=== PATIENT | female | born 1975 | race African-American/Black ===

== ENCOUNTER 2016-12-12 11:44 | Emergency (ER) | payer OTHER ==
[~2016-12-12] VITALS: Ht 149.9 cm; Wt 43.2 kg
[~2016-12-12 11:44] MED LIST: BCP PO; MULT1CAP32 PO
[2016-12-12] MEDS ORDERED: PROM5SYR2 PO (11:47)
[2016-12-12] MEDS ORDERED: BECL8.7A7 IH (11:47)
[2016-12-12 13:22] VITALS: BP 139/87
== END 2016-12-12 13:23 | disposition home or self-care (01) ==
LOC: EMS 11:45
DX: J40 Bronchitis, not specified as acute or chronic (principal); J45.909 Unspecified asthma, uncomplicated; Z87.891 Personal history of nicotine dependence
CPT/HCPCS: 71020; 99284

== ENCOUNTER 2017-12-06 19:42 | Emergency (ER) | payer OTHER ==
[~2017-12-06] VITALS: Ht 149.9 cm; Wt 64.0 kg
[~2017-12-06 19:42] MED LIST changes: +BECL8.7A7 IH; +PROM5SYR2 PO
[2017-12-06] MEDS ORDERED: NORE1TAB PO (19:58)
[2017-12-06 20:24] LABS: BASOPHILS % (AUTO) 0.7 % (0.0-2.0); EOSINOPHILS % (AUTO) 3.1 % (1.0-6.0); HEMATOCRIT 40.7 % (36-46); HEMOGLOBIN 13.6 g/dL (12.0-16.0); LYMPHOCYTES # (AUTO) 2.7 K/uL (1.0-4.8); LYMPHOCYTES % (AUTO) 41.9 % (22.0-44.0); MEAN CORPUSCULAR HGB CONC 33.3 G/dL (31.0-37.0); MEAN CORPUSCULAR VOLUME 84 fL (80-100); MONOCYTES # (AUTO) 0.5 K/uL (0.1-1.0); MONOCYTES % (AUTO) 7.7 % (2.0-9.0); NEUTROPHILS % (AUTO) 46.6 % (40.0-70.0); PLATELET COUNT (AUTO) 275 K/uL (150-450); RED BLOOD CELL COUNT(AUTO) 4.84 MIL/uL (4.00-5.20); RED CELL DISTRIBUTION WIDTH 13.7 % (11.5-14.5)
[2017-12-06 20:30] LABS: APPEARANCE,URINE CLEAR (CLEAR); BILIRUBIN,URINE NEGATIVE (NEGATIVE); GLUCOSE, URINE (UA) NEGATIVE (NEGATIVE); KETONES,URINE NEGATIVE (NEGATIVE); LEUKOCYTE ESTERASE ,URINE NEGATIVE (NEGATIVE); NITRATE,URINE NEGATIVE (NEGATIVE); OCCULT BLOOD,URINE NEGATIVE (NEGATIVE); PROTEIN,URINE NEGATIVE (NEGATIVE)
[2017-12-06 20:34] LABS: ANION GAP 9 mmol/L (8-16); CALCIUM, TOTAL 9.3 mg/dL (8.8-10.5); CARBON DIOXIDE 25 mmol/L (22-29); CHLORIDE 105 mmol/L (98-107); CREATININE 0.97 mg/dL (0.60-1.30); GLOMERULAR FILTR. RATE CALC > 60 mL/min (>60); GLUCOSE,RANDOM 90 mg/dL (70-110); POTASSIUM 4.4 mmol/L (3.5-5.1); SODIUM SERUM 139 mmol/L (136-145); UREA NITROGEN, BLOOD 8 mg/dL (7-18)
[2017-12-06 20:40] LABS: ALANINE AMINOTRANSFERASE 15 U/L (12-78); ALBUMIN 3.3 g/dL (3.4-5.0); ALKALINE PHOSPHATASE 65 U/L (46-116); ASPARTATE AMINOTRANSFERASE 13 U/L (15-37); BILIRUBIN,TOTAL 0.4 mg/dL (0.1-1.0); TOTAL PROTEIN, SERUM 7.6 g/dL (6.4-8.2)
[2017-12-06 21:14] LABS: BACTERIA,URINE None Seen /HPF (None Seen); RBC,URINE None Seen /HPF (0-2); WBC,URINE None Seen /HPF (0-5)
[2017-12-06 21:15] LABS: SQUAMOUS EPITHELIAL CELL,UR Rare /LPF (None Seen)
[2017-12-06] MEDS ORDERED: IBUPROFEN 600 MG TABLET PO ONE (21:15)
[2017-12-06 22:15] VITALS: BP 141/86
[2017-12-06] MEDS ORDERED: PredniSONE 20 MG TABLET PO ONE (22:15)
== END 2017-12-06 22:32 | disposition home or self-care (01) ==
LOC: EMS 19:42
DX: T63.441A Toxic effect of venom of bees, accidental (unintentional), initial encounter (principal); R22.0 Localized swelling, mass and lump, head; N93.8 Other specified abnormal uterine and vaginal bleeding; J45.909 Unspecified asthma, uncomplicated; Z87.891 Personal history of nicotine dependence; Z79.899 Other long term (current) drug therapy; Y92.89 Other specified places as the place of occurrence of the external cause
CPT/HCPCS: 36415; 80053; 81001; 84703; 85025; 99284; J7512

== ENCOUNTER 2019-01-10 12:00 | Emergency (ER) | payer OTHER ==
[~2019-01-10] VITALS: Ht 149.9 cm; Wt 65.0 kg
[~2019-01-10 12:00] MED LIST changes: -BCP PO; -BECL8.7A7 IH; +NORE1TAB PO; -PROM5SYR2 PO
[2019-01-10 13:47] VITALS: BP 147/89
[2019-01-10] MEDS ORDERED: IBUPROFEN 400 MG TABLET PO ONE (14:30)
[2019-01-10] MEDS ORDERED: BENZONATATE 100 MG CAPSULE PO ONE (14:30)
== END 2019-01-10 14:46 | disposition home or self-care (01) ==
LOC: EMS 12:02
DX: J06.9 Acute upper respiratory infection, unspecified (principal); J45.909 Unspecified asthma, uncomplicated; Z87.891 Personal history of nicotine dependence; Z79.899 Other long term (current) drug therapy